=== PATIENT | female | born 1980 | race Asian ===

== ENCOUNTER 2020-10-04 15:36 | Emergency (ER) | payer BC, OTHER ==
[~2020-10-04] VITALS: Ht 165.1 cm; Wt 56.7 kg
[2020-10-04 15:38] VITALS: BP 145/96
[2020-10-04] MEDS ORDERED: cefTRIAXone SOD 1,000 MG VL IM ONE (16:30)
[2020-10-04] MEDS ORDERED: ACETAMINOPHEN 325 MG TAB PO ONE (16:30)
== END 2020-10-04 17:45 | disposition home or self-care (01) ==
LOC: ER 15:36
DX: J02.9 Acute pharyngitis, unspecified (principal); Z20.828 Contact with and (suspected) exposure to other viral communicable diseases
CPT/HCPCS: 36415; 71045; 87426; 96372; 99284; C9803; J0696; U0003

== ENCOUNTER 2020-10-06 12:39 | Emergency (ER) | payer BC ==
[~2020-10-06] VITALS: Ht 167.6 cm; Wt 70.8 kg
[2020-10-06 12:46] VITALS: BP 153/100
[2020-10-06 15:19] LABS: Basophils # (auto) 0 10 ^3/uL (0-0.2); Eosinophils # (auto) 0 10 ^3/uL (0-0.8); Eosinophils % (auto) 0.1 % (0.0-7.0); Hematocrit 39.1 % (36.0-46.0); Hemoglobin 13.7 g/dL (12.2-16.2); Lymphocytes # (auto) 0.9 10 ^3/uL (0.4-5.4); Lymphocytes % (auto) 25.3 % (10.0-50.0); Mean Corpuscular Hemoglobin 33.1 pg (28.0-32.0); Mean Corpuscular Hgb Conc. 34.9 g/dL (32.0-36.0); Mean Corpuscular Volume 94.7 fL (80.0-100.0); Monocytes # (auto) 0.3 10 ^3/uL (0-1.3); Monocytes % (auto) 6.9 % (0.0-12.0); Neutrophils # (auto) 2.5 10 ^3/uL (1.6-8.6); Neutrophils % (auto) 66.7 % (37.0-80.0); Platelet Count (auto) 209 10^3/uL (140-450); Red Blood Cells 4.13 10^6/uL (4.0-5.20); Red Cell Distribution Width 13.8 % (11.8-14.3); White Blood Cell 3.7 10^3/uL (4.4-10.8)
[2020-10-06 15:38] LABS: Albumin 3.9 g/dL (3.4-5.0); Calcium 8.6 mg/dL (8.5-10.1); Potassium 3.6 mmol/L (3.5-5.1)
[2020-10-06 15:43] LABS: Bilirubin, Total 0.3 mg/dL (0.2-1.0); Total Protein 7.5 g/dL (6.4-8.2)
== END 2020-10-06 17:12 | disposition home or self-care (01) ==
LOC: ER 12:39
DX: F41.9 Anxiety disorder, unspecified (principal); K21.9 Gastro-esophageal reflux disease without esophagitis; Z20.828 Contact with and (suspected) exposure to other viral communicable diseases
CPT/HCPCS: 36415; 71045; 76705; 80053; 83690; 84484; 85025

== ENCOUNTER 2020-12-15 17:09 | Emergency (ER) | payer BC ==
[~2020-12-15] VITALS: Ht 167.6 cm; Wt 54.4 kg
[2020-12-15 17:17] VITALS: BP 128/85
[2020-12-15 19:11] LABS: Urine Bacteria NONE SEEN /hpf (None Seen); Urine Blood Negative /uL (Negative); Urine Specific Gravity 1.001 (1.001-1.035); Urine WBC <1 /hpf (0 - 5)
== END 2020-12-15 19:33 | disposition left against medical advice (07) ==
LOC: ER 17:09
DX: K21.9 Gastro-esophageal reflux disease without esophagitis (principal); F41.1 Generalized anxiety disorder; F45.9 Somatoform disorder, unspecified
CPT/HCPCS: 71045; 81001; 93005

== ENCOUNTER 2021-10-13 14:10 | Emergency (ER) | payer BC ==
[~2021-10-13] VITALS: Ht 167.6 cm; Wt 57.2 kg
[2021-10-13 20:00] VITALS: BP 99/62
== END 2021-10-13 20:39 | disposition home or self-care (01) ==
LOC: ER 14:10
DX: N63.10 Unspecified lump in the right breast, unspecified quadrant (principal)
CPT/HCPCS: 76642